=== PATIENT | female | born 1995 | race Caucasian/White ===

== ENCOUNTER 2017-03-19 23:13 | Inpatient (IN) | payer OTHER ==
[~2017-03-19] VITALS: Ht 170.2 cm; Wt 73.0 kg
[~2017-03-19 23:13] MED LIST: PREN1TAB20 PO
[2017-03-20] VITALS (41 sets, daily range): BP systolic 101–189; BP diastolic 60–143; PULSE 74–129; RESP 17–18; TEMP 97.8–98.5
[2017-03-20] MEDS: LACTATED RINGER'S 1000 ML INJ 1,000 ML IV SCH ×2 (00:31→23:13)
--- NOTE | 2017-03-20 00:35 | HHI.HP ---
History & Physical H&P HPI Chief Complaint Contractions Date Seen: March 20, 2017 Time Seen: 12:00 Travel History International Travel<30 Days: No Contact w/Intl Traveler<30Days: No Known Affected Area: No History of Present Illness HPI 21-year-old who is at 40 weeks and 2 days comes in complaining of contractions for the past several hours every 10-20 minutes apart. A short was a centimeter in the office this morning. Her previous was complicated by a shoulder dystocia during her delivery of an 8 lbs. 14 oz. child that was then complicated by a fourth degree laceration that was repaired. Patient has not been counseled about mode of delivery for early induction for this . Para: 1 : 3 Miscarriage: 1 History Past Medical History Medical History: Denies Significant Hx Obstetric History Obstetric History Spontaneous vaginal delivery at term, baby was 8 lbs. 14 oz., shoulder dystocia and fourth degree laceration Past Surgical History Surgical History: No Previous Surgery Family History Family History: Negative Social History Alcohol Use: No Tobacco Use: No Substance Abuse: No Allergies-Medications (Allergen,Severity, Reaction): Coded Allergies: Penicillin (Verified Allergy, Severe, HIVE,SWELLING, 03/13/17) Home Meds Active Scripts W/O Vit A W/ Fe Carbonyl (Citranatal Rx)27-1 Mg Tab1 Tab PO DAILY #30 TAB Ref 11 Prov:Victoria Lucas 12/20/16 Review of Systems Except as stated in HPI: all other systems reviewed are Neg Physical Exam Narrative GENERAL: Well-nourished, well-developed patient. SKIN: Warm and dry. HEAD: Normocephalic and atraumatic. EYES: No scleral icterus. No injection or drainage. ENT: No nasal drainage noted. Mucous membranes pink. Airway patent. NECK: Supple, trachea midline. No JVD. CARDIOVASCULAR: Regular rate and rhythm without murmurs, gallops, or rubs. RESPIRATORY: Breath sounds equal bilaterally. No accessory muscle use. BREASTS: Bilateral exam showed no masses , no retractions, no nipple discharge. ABDOMEN/GI: Abdomen soft, non-tender, bowel sounds present, no rebound, no guarding Gravid to [-38] weeks size Fundal Height: [-38] estimated weight is 8 1/2 pounds GENITOURINARY: External Genitalia: intact and normal in appearance BUS glands: [Normal-] Cervix: [Exterior-] Dilatation: [-1] Effacement: [-80] Station: [-2-] Presentation: [Vertex-] Membranes: [intact ] Uterine Contractions: [-] FHT's: Category: [-1] Baseline: [-140] Reactive: [Moderate-] Variability: [-Moderate] Decels: [Absent-] EXTREMITIES: No cyanosis or edema. BACK: Nontender without obvious deformity. No CVA tenderness. NEUROLOGICAL: Awake and alert. Motor and sensory grossly within normal limits. Five out of 5 muscle strength in all muscle groups. Normal speech. Data Data Vital Signs Reviewed: Yes Orders Ob (2e) Additional Admit Info (03/20/17 00:20) MDM Plan 21-year-old at 4 weeks and 2 days with contractions and possible latent labor Patient has a history of a prior shoulder dystocia without injury but sustained a fourth degree laceration I discussed in detail that a previous shoulder dystocia is a risk factor for repeat shoulder dystocia that could result in injury and another maternal injury in the form of a repeat fourth degree laceration. In patients who sustained a second injury to the anal sphincter that there future risk of fecal incontinence was high. I offered section instead of a vaginal delivery to avoid possibilities of a repeat shoulder dystocia and to avoid maternal trauma. Patient understands that the only way to avoid shoulder dystocia maternal trauma is to avoid vaginal delivery Patient and her spouse have discussed this together and they have declined section but will stay for induction of labor if her latent labor does not progress Group B strep is negative Diagnosis Diagnosis: Primary Impression: 40 weeks gestation of Additional Impressions: History of shoulder dystocia in prior , currently in third trimester History of maternal fourth degree perineal laceration, currently in third trimester Irregular uterine contractions Disposition: 01 DISCHARGE HOME Brynn Lanier MD March 20, 2017 00:31 Brynn Lanier MD March 20, 2017 00:35
[2017-03-20] MEDS ORDERED: OXYTOCIN 30 UNITS-500ML PREMIX 500 ML IV ONE (00:45)
[2017-03-20] MEDS ORDERED: ONDANSETRON HCL 4 MG/2 ML VIAL IV PRN (00:45)
[2017-03-20] MEDS ORDERED: LIDOCAINE HCL 1% 50 ML VIAL INFIL PRN (00:45)
[2017-03-20] MEDS ORDERED: SODIUM CHLORID 0.9% 500 ML INJ 500 ML IV PRN (00:45)
[2017-03-20] MEDS ORDERED: SODIUM CHLORIDE 0.9% FLUSH 10 ML FLUSH IV FLUSH PRN (00:45)
[2017-03-20] MEDS ORDERED: MINERAL OIL 10 ML VIAL TOPICAL PRN (00:45)
[2017-03-20] MEDS ORDERED: CITRIC ACID-SODIUM CITRATE LIQ 30 ML UDC PO SCH (00:45)
[2017-03-20] MEDS ORDERED: LIDOCAINE HCL 1% 50 ML VIAL I-DERMAL PRN (00:45)
[2017-03-20] MEDS ORDERED: SODIUM CHLOR 0.9% 1000 ML INJ 1,000 ML IV PRN (00:51)
[2017-03-20 01:11] LABS: AUTOMATED NEUTROPHIL # 13.9 TH/MM3 (1.8-7.7); BASOPHIL # 0.1 TH/MM3 (0-0.2); BASOPHIL % 0.5 % (0.0-2.0); EOSINOPHIL # 0.1 TH/MM3 (0-0.4); EOSINOPHIL % 0.3 % (0.0-4.0); HEMATOCRIT 35.9 % (35.0-46.0); LYMPH % 11.1 % (9.0-44.0); LYMPHOCYTE # 1.9 TH/MM3 (1.0-4.8); MEAN CELL VOLUME 81.4 FL (80.0-100.0); MEAN CORPUSCULAR HEMOGLOBIN 26.6 PG (27.0-34.0); MEAN CORPUSCULAR HGB CONC 32.7 % (32.0-36.0); NEUT % 80.1 % (16.0-70.0); PLATELET COUNT 205 TH/MM3 (150-450); RED BLOOD COUNT 4.41 MIL/MM3 (4.00-5.30); RED CELL DISTRIBUTION WIDTH 14.5 % (11.6-17.2); WHITE BLOOD COUNT 17.3 TH/MM3 (4.0-11.0)
[2017-03-20 01:14] LABS: HEMO FLAGS AUTO DIFF
[2017-03-20 02:09] LABS: BANDS 4 % (0-6); BASOPHILS 1 % (0-2); MYELOCYTES 1 % (0-0); NEUTROPHIL # MANUAL DIFF 13.8 TH/MM3 (1.8-7.7); PLATELET ESTIMATE SMEAR NORMAL (NORMAL); PLATELET MORPHOLOGY NORMAL (NORMAL); POLYS (SEG NEUTROPHILS) 75 % (16-70); SCAN/DIFF FINAL DIFF MANUAL; WBC DIFF SAMPLE 100
[2017-03-20] MEDS: LACTATED RINGER'S 1000 ML INJ 1,000 ML IV PRN ×2 (06:21→23:06)
[2017-03-20] MEDS: MISOPROSTOL 25 MCG SUPP VAGINAL PRN ×2 (07:45→12:00)
[2017-03-20] MEDS: SODIUM CHLORIDE 0.9% FLUSH 10 ML FLUSH IV FLUSH SCH ×2 (09:00→21:00)
--- NOTE | 2017-03-20 12:05 | PD.LABORPN ---
Subjective Subjective OB note term induction -- cytotec ripening on going , 1 dose given -- no change in cx still 1/thick /posterior , FHR reactive CTXs spaced out 2 nd cytotec placed will cont q 4 h until cx ripens or in am Objective Vital Signs Vital Signs Date Time Temp Pulse Resp B/P Pulse Ox O2 Delivery O2 Flow Rate FiO2 03/20/17 08:00 17 03/20/17 07:51 97 110/71 03/20/17 06:57 97.8 92 17 120/67 03/20/17 06:00 18 03/20/17 05:00 18 Objective Pelvic Exam: Cervix: [-] Dilatation: [1-] Effacement: [thick-] Station: [-3 posterior] Presentation: [vtx-] Membranes: [intact ] Uterine Contractions: [q 5-8 min-] FHT's: Category: [1-] Baseline: [-133] Reactive: [-Y] Variability: [-mod] Decels: [-0] Assessment/Plan Assessment and Plan cont cx ripening process Jesus Mills II, MD March 20, 2017 12:05
[2017-03-20] MEDS ORDERED: fentaNYL 2MCG-BUPIV 0.125% INJ 100 ML ONE (22:35)
[2017-03-20] MEDS ORDERED: NO SYSTEM NARCOTICS PRN (22:45)
[2017-03-20] MEDS ORDERED: fentaNYL 2MCG-BUPIV 0.125% 100 ML EPIDURAL SCH (22:45)
[2017-03-20] MEDS ORDERED: DO NOT ADMINISTER ANTICOAGULANTS PRN (22:45)
[2017-03-20] MEDS ORDERED: ePHEDrine/NS 25 MG/5 ML SYR IV PRN (23:30)
[2017-03-20] MEDS ORDERED: OXYTOCIN 30 UNITS/NS 500ML PREMIX IV SCH (23:45)
[2017-03-21] VITALS (93 sets, daily range): BP systolic 98–130; BP diastolic 53–83; PULSE 70–143; RESP 16–18; TEMP 97.9–99.7
[2017-03-21] MEDS: LACTATED RINGER'S 1000 ML INJ 1,000 ML IV SCH (04:37)
[2017-03-21 11:16] LABS: BLOOD GAS O2 HGB SATURATION 25 % (90-100); CORD BLOOD GAS HCO3 24 mmol/L (21-29); CORD BLOOD GAS PCO2 50 mmHG (34-78); CORD BLOOD GAS PH 7.31 (7.14-7.42); CORD BLOOD GAS PO2 15 mmHG (3.0-40.0)
[2017-03-21 11:17] LABS: DRAW SITE CORD BLOOD; STAT NO
--- NOTE | 2017-03-21 11:46 | PD.OB.DELI ---
Delivery Date: March 21, 2017 Anesthesia: Epidural Episiotomy: None Vaginal Delivery: Normal Presentation: Occiput anterior Nuchal Cord: None Delayed cord clamping (45 sec): No Shoulder Dystocia: Suprapubic pressure given, Shante maneuver done, Other ( delivery of posterior shoulder) : Male One Minute : 8 Five Minute : 8 Weight: 4170g Placenta: Spontaneous delivery, Intact, 3 vessel cord Laceration: Vaginal laceration, 1 deg Repair: Chromic running Additional Information Pt is a at 40 weeks and 4 days with h/o of prior labor complicated by shoulder dystocia and 4th degree laceration, admitted in latent labor for induction. She received two doses of Cytotec and subsequently oxytocin. She received an epidural overnight. She pushed with moderate effort. After the head was delivered, a shoulder dystocia was recognized and attempts were made to deliver the anterior shoulder. Suprapubic pressure was applied with Shante maneuver and then the posterior shoulder was delivered atraumatically. The was noted to have poor tone and the cord was clamped and cut immediately, and was handed to waiting nurse. The placenta was delivered and noted to be intact. Two first degree vaginal lacerations were repaired using running 2-0 chromic suture. The lacerations were noted to be hemostatic. Bleeding was minimal. The patient tolerated the procedure well. Sponge, lap, and instrument counts were correct x2. The remained with the mom in the delivery room. (Dale Cortez MD R1) Attestation I was present for the delivery. Once the shoulder dystocia was diagnosed I performed the delivery. I assisted with the instruction of the repair. ( Florecita Hernandez MD) Dale Cortez MD R1 March 21, 2017 11:46 Florecita Hernandez MD March 21, 2017 12:42
[2017-03-21 13:33] LABS: BACTERIA, URINE RARE /hpf; BLOOD, URINE MOD (NEG); COMMENT (UR) CULT NOT INDICATED; CULTURE IF INDICATED CULT NOT INDICATED; GLUCOSE,URINE NEG (NEG); KETONE, URINE 40 mg/dL (NEG); NITRITE,URINE NEG (NEG); PH, URINE 6.5 (5.0-8.5); URINE COLOR YELLOW (YELLW/STRAW)
[2017-03-21] MEDS ORDERED: DIPHTH/TETANUS/ACEL PERTUSSIS (BOOSTER) 0.5 ML VIAL/PFS IM ONE (16:00)
[2017-03-21] MEDS ORDERED: MEASLES, MUMPS, RUBELLA VACCINE 0.5 ML VIAL SQ ONE (16:00)
[2017-03-21] MEDS ORDERED: DOCUSATE SODIUM 50 MG/SENNA 8.6 MG TAB PO PRN (16:45)
[2017-03-21] MEDS ORDERED: WITCH HAZEL 50%/GLYCERIN 12.5% 40 PAD JAR TOPICAL PRN (16:45)
[2017-03-21] MEDS ORDERED: ONDANSETRON ODT 4 MG TAB PO PRN (16:45)
[2017-03-21] MEDS ORDERED: ZOLPIDEM TARTRATE 5 MG TAB PO PRN (16:45)
[2017-03-21] MEDS ORDERED: ACETAMINOPHEN 325 MG TAB PO PRN (16:45)
[2017-03-21] MEDS ORDERED: ALUMINUM/MAGNESIUM/SIMETH 30 ML CUP PO PRN (16:45)
[2017-03-21] MEDS ORDERED: oxyCODONE/ACETAMINOPHEN 5 MG/325 MG TAB PO PRN ×2 (16:45)
[2017-03-21] MEDS ORDERED: BENZOCAINE 20% TOPICAL SPRAY 60 ML CAN TOPICAL PRN (16:45)
[2017-03-21] MEDS ORDERED: SODIUM CHLORIDE 0.9% FLUSH 10 ML FLUSH IV FLUSH PRN (16:45)
[2017-03-21] MEDS ORDERED: SODIUM CHLORIDE 0.9% FLUSH 10 ML FLUSH IV FLUSH SCH (21:00)
[2017-03-21] MEDS: IBUPROFEN 600 MG TAB PO PRN (23:01)
[2017-03-22] MEDS: IBUPROFEN 600 MG TAB PO PRN ×3 (07:54→22:18)
[2017-03-22 08:10] VITALS: BP 102/65; PULSE 81; RESP 18; TEMP 97.7
--- NOTE | 2017-03-22 09:07 | HHI.OB ---
Subjective Remarks 21 year old PPD 1. No complaints this morning. Pain well controlled. She is . Lochia is light. [facility] is her OB provider. Plans on Vasectomy for control. (Dale Diallo MD R2) Objective Vitals/I&O Vital Signs Date Time Temp Pulse Resp B/P Pulse Ox O2 Delivery O2 Flow Rate FiO2 03/21/17 14:00 98.3 95 16 98/66 03/21/17 13:35 18 03/21/17 13:15 120 109/67 03/21/17 13:10 18 03/21/17 13:02 129 125/64 03/21/17 12:45 117 124/70 03/21/17 12:39 18 03/21/17 12:30 90 110/62 03/21/17 12:15 103 105/53 03/21/17 12:15 18 03/21/17 12:00 113 113/64 03/21/17 11:56 18 03/21/17 11:46 97 105/63 03/21/17 11:39 18 03/21/17 11:39 98.3 03/21/17 11:30 110 98/55 03/21/17 11:27 18 03/21/17 11:25 114 106/67 03/21/17 11:00 97 114/78 03/21/17 10:30 143 109/78 03/21/17 10:00 95 103/80 03/21/17 09:30 85 114/59 03/21/17 09:09 99.7 03/21/17 09:08 99.3 Objective Remarks GENERAL: Well-nourished, well-developed patient. CARDIOVASCULAR: Regular rate and rhythm without murmurs, gallops, or rubs. RESPIRATORY: Breath sounds equal bilaterally. No accessory muscle use. ABDOMEN/GI: Abdomen soft, non-tender. Fundus: Firm, non-tender at umbilicus. GENITOURINARY: Light to moderate bleeding. EXTREMITIES: No cyanosis or edema, non-tender, without signs of DVT. Medications and IVs Current Medications Medications (Trade) Dose Ordered Sig/Derrell Route Start Time Stop Time Status Last Admin (Pitocin 30 Units-NS 500 ml Premix) 500 ml @ 0 mls/hr TITRATE IV 03/20/17 23:45 03/21/17 00:13 (NS Flush) 2 ml BID IV FLUSH 03/21/17 21:00 (NS Flush) 2 ml UNSCH PRN IV FLUSH 03/21/17 16:45 (Tylenol) 650 mg Q4H PRN PO 03/21/17 16:45 (Motrin) 600 mg Q6H PRN PO 03/21/17 16:45 03/22/17 07:54 (Percocet 5-325 Mg) 1 tab Q4H PRN PO 03/21/17 16:45 (Percocet 5-325 Mg) 2 tab Q4H PRN PO 03/21/17 16:45 (Americaine 20% Top Spr) 1 spray Q4H PRN TOPICAL 03/21/17 16:45 03/21/17 17:06 (Tucks Pads) 1 applic QID PRN TOPICAL 03/21/17 16:45 03/21/17 17:06 (Susy-Colace) 2 tab Q12H PRN PO 03/21/17 16:45 03/22/17 07:53 (Ambien) 5 mg HS PRN PO 03/21/17 16:45 (Mag-Al Plus Susp Liq) 15 ml Q8H PRN PO 03/21/17 16:45 (Zofran Odt) 4 mg Q6H PRN PO 03/21/17 16:45 (Dale Diallo MD R2) Assessment/Plan Assessment and Plan 21 year old PPD 1 - Continue routine post care - Ibuprofen PRN for pain - Monitor lochia - Encourage - Discuss control options - Plan for discharge tomorrow Discuss with Dr. Hernandez (Dale Diallo MD R2) Attending Attestation Agree with above. D/c home tomorrow. (Florecita Hernandez MD) Dale Diallo MD R2 March 22, 2017 09:07 Florecita Hernandez MD March 22, 2017 09:35
[2017-03-22 15:40] VITALS: RESP 18
[2017-03-23 07:00] VITALS: BP 106/69; PULSE 75; RESP 18; TEMP 97.6
--- NOTE | 2017-03-23 07:05 | HHI.OB ---
Subjective Post Day: 2 Remarks 21 year old PPD 2. No complaints this morning. Pain well controlled. She is . Lochia is light. [facility] is her OB provider. Plans on Vasectomy for control. (Malaika Hendrickson MD R1) Remarks Patient seen and evaluated with resident under direct supervision, agree with assessment and plan. (Yohannes Gaming MD) Objective Vitals/I&O Vital Signs Date Time Temp Pulse Resp B/P Pulse Ox O2 Delivery O2 Flow Rate FiO2 03/22/17 15:40 18 03/22/17 08:10 97.7 81 18 102/65 Objective Remarks GENERAL: Well-nourished, well-developed female. CARDIOVASCULAR: Regular rate and rhythm without murmurs, gallops, or rubs. RESPIRATORY: Breath sounds equal bilaterally. No accessory muscle use. ABDOMEN/GI: Abdomen soft, non-tender. Fundus: Firm, non-tender below umbilicus. GENITOURINARY: Light to moderate bleeding. EXTREMITIES: No cyanosis or edema, non-tender, without signs of DVT. Medications and IVs Current Medications Medications (Trade) Dose Ordered Sig/Derrell Route Start Time Stop Time Status Last Admin (Pitocin 30 Units-NS 500 ml Premix) 500 ml @ 0 mls/hr TITRATE IV 03/20/17 23:45 03/21/17 00:13 (NS Flush) 2 ml BID IV FLUSH 03/21/17 21:00 (NS Flush) 2 ml UNSCH PRN IV FLUSH 03/21/17 16:45 (Tylenol) 650 mg Q4H PRN PO 03/21/17 16:45 (Motrin) 600 mg Q6H PRN PO 03/21/17 16:45 03/22/17 22:18 (Percocet 5-325 Mg) 1 tab Q4H PRN PO 03/21/17 16:45 (Percocet 5-325 Mg) 2 tab Q4H PRN PO 03/21/17 16:45 (Americaine 20% Top Spr) 1 spray Q4H PRN TOPICAL 03/21/17 16:45 03/21/17 17:06 (Tucks Pads) 1 applic QID PRN TOPICAL 03/21/17 16:45 03/21/17 17:06 (Susy-Colace) 2 tab Q12H PRN PO 03/21/17 16:45 03/22/17 07:53 (Ambien) 5 mg HS PRN PO 03/21/17 16:45 (Mag-Al Plus Susp Liq) 15 ml Q8H PRN PO 03/21/17 16:45 (Zofran Odt) 4 mg Q6H PRN PO 03/21/17 16:45 (Malaika Hendrickson MD R1) Assessment/Plan Problem List: (1) Normal vaginal delivery Assessment and Plan 21 year old PPD 2 - Continue routine post care - Ibuprofen PRN for pain - Lochia wnl - Encourage - control plan: vasectomy - Plan for discharge today Discuss with Dr. Gaming (Malaika Hendrickson MD R1) Malaika Hendrickson MD R1 March 23, 2017 07:05 Yohannes Gaming MD March 23, 2017 09:40
--- NOTE | 2017-03-23 07:06 | HHI.DCPOC ---
Discharge Care Plan Diagnosis: (1) Normal vaginal delivery Report Symptoms to Your Doctor -Temperate above 100.5 degrees -Redness, of incision or excessive or foul smelling drainage -Unusual pain or calf pain -Increased vaginal bleeding -Painful or difficulty urinating -Feelings of extreme sadness or anxiety after 2 weeks Goals to Promote Your Health * To prevent worsening of your condition and complications * To maintain your health at the optimal level Directions to Meet Your Goals Take your medications as prescribed Follow your dietary instruction Follow activity as directed Ensure plenty of rest for recovery Drink fluids for hydration Keep your appointments as scheduled Take your immunizations and boosters as scheduled If your symptoms worsen call your PCP, if no PCP go to Urgent Care Center or Emergency Room Smoking is Dangerous to Your Health. Avoid second hand smoke Call the 24-hour crisis hotline for domestic abuse at Malaika Hendrickson MD R1 March 23, 2017 07:06 Yohannes Gaming MD March 23, 2017 09:40
[2017-03-23] MEDS ORDERED: IBUP-232 PO (07:07)
[2017-03-23] MEDS: IBUPROFEN 600 MG TAB PO PRN (09:04)
== END 2017-03-23 14:27 | disposition home or self-care (01) | DRG 775 ==
LOC: HOBED 23:13 → H2EA 03-20 00:20 → H1EA 03-21 14:08
PROVIDERS: ADMIT Obstetrics & Gynecology Obstetrics; ATTEND Obstetrics & Gynecology Obstetrics
PROC: 3E0P7GC Introduction of Other Therapeutic Substance into Female Reproductive, Via Natural or Artificial Opening (ICD-10-PCS; 2017-03-20)
PROC: 00HU33Z Insertion of Infusion Device into Spinal Canal, Percutaneous Approach (ICD-10-PCS; 2017-03-20)
PROC: 3E0R3CZ (ICD-10-PCS; 2017-03-20)
PROC: 10E0XZZ Delivery of Products of Conception, External Approach (ICD-10-PCS; principal; 2017-03-21)
PROC: 0UQGXZZ Repair Vagina, External Approach (ICD-10-PCS; 2017-03-21)
DX: O66.0 Obstructed labor due to shoulder dystocia (principal); O71.4 Obstetric high vaginal laceration alone; Z3A.40 40 weeks gestation of pregnancy; Z37.0 Single live birth
CPT/HCPCS: 81001; 82805; 84112; 85007; 85027; 86900; 86901; 99285; J2590; J3010; J7120